=== PATIENT | female | born 1990 | race Hispanic/Latino ===

== ENCOUNTER 2016-12-25 09:12 | Day surgery (SDC) | payer OTHER ==
[2016-12-25 10:07] VITALS: BMI 19.4
[2016-12-25] MEDS ORDERED: Lactated Ringer's 1,000 ML IV ONE (12:45)
[2016-12-25] MEDS ORDERED: Propofol 10 mg/ml Inj (20 ML) ONE ×3 (12:47→13:03)
--- NOTE | 2016-12-25 12:48 | CP.SDSHP ---
Same Day Surgery H & P - History Proposed Procedure: colonoscopy Pre-Op Diagnosis: rectal bleeding - Previous Medical/Surgical History Pulmonary: Asthma - Allergies Allergies: Allergies Penicillins Allergy (Verified 12/25/16 10:05) RASH - Physical Exam General Appearance: NAD Vital Signs: Vital Signs 12/25/16 10:08 Temperature 98.7 F Pulse Rate 80 Respiratory 20 Rate Blood Pressure 111/77 O2 Sat by Pulse 100 Oximetry Mental Status: Alert & Oriented x3 Neuro: WNL Heart: WNL Lungs: WNL GI: WNL - {Optional Preform as Required} Abdomen: WNL - Impression Pt. Evaluated Today:Candidate for Anesthesia & Procedure: Yes - Date & Time Date: 12/25/16 Time: 12:48 Short Stay Discharge - Short Stay Discharge Admitting Diagnosis/Reason for Visit: SLOW TRANSIT CONSTIPATION,ANAL FISSURE, UNSPECIFIE Disposition: HOME/ ROUTINE
[2016-12-25 16:00] VITALS: TEMP 98.4
[2016-12-25 16:06] VITALS: BP 105/68; PULSE 65; RESP 17; O2SAT 98
== END 2016-12-25 14:20 | disposition home or self-care (01) ==
LOC: C.ENDO 09:12
PROVIDERS: ATTEND Internal Medicine Gastroenterology
DX: K62.5 Hemorrhage of anus and rectum (principal); K64.1 Second degree hemorrhoids; Q43.8 Other specified congenital malformations of intestine; K59.01 Slow transit constipation; K60.2 Anal fissure, unspecified
CPT/HCPCS: 45378; 84703; J2001; J2704; J3010; J7120